=== PATIENT | male | born 1985 | race Caucasian/White ===

== ENCOUNTER 2019-07-11 13:18 | Emergency (ER) | payer OTHER ==
[2019-07-11 13:24] VITALS: BMI 20.7
[2019-07-11] MEDS ORDERED: CLINDAMYCIN 600MG PREMIX IVPB 600 MG/50 ML BAG IVPB ONE ×2 (15:06→15:55)
--- NOTE | 2019-07-11 15:19 | PDOC ---
History of Present Illness - General Chief Complaint: Wound Stated Complaint: LAC RT 4TH DIGIT Time Seen by Provider: 07/11/19 13:57 History Source: Patient - History of Present Illness Occurred: reports: other Upper Extremity Pain Location: left: 4th finger Past History - Past Medical History Allergies/Adverse Reactions: Allergies Allergy/AdvReac Type Severity Reaction Status Date / Time No Known Allergies Allergy Verified 07/11/19 13:24 Home Medications: Ambulatory Orders NK [No Known Home Medication] 07/11/19 COPD: No - Suicide/Smoking/Psychosocial Hx Smoking History: Never smoked Information on smoking cessation initiated: No Hx Alcohol Use: No Drug/Substance Use Hx: No Review of Systems - Review of Systems Constitutional: No: Chills, Fever, Malaise *Physical Exam - Vital Signs Last Vital Signs Temp Pulse Resp BP Pulse Ox 98.3 F 110 H 18 141/91 98 07/11/19 13:22 07/11/19 13:22 07/11/19 13:22 07/11/19 13:22 07/11/19 13:22 - Physical Exam General Appearance: Yes: Appropriately Dressed. No: Apparent Distress HEENT: positive: Normal Voice Neck: positive: Supple Respiratory/Chest: negative: Respiratory Distress Extremity: positive: Other (diffuse swelling to L 4th digit w/ wound to volar aspect of distal phalanx w/ surrounding erythema that extends to PIP joint w/ LROM to PIP and DIPJ, C/F possible tendon involvement) Integumentary: positive: Dry, Warm Neurologic: positive: Fully Oriented, Alert, Normal Mood/Affect ED Treatment Course - LABORATORY CBC & Chemistry Diagram: 07/11/19 15:40 07/11/19 15:40 - RADIOLOGY Radiology Studies Ordered: Category Date Time Status FINGER(S) LEFT [RAD] Stat Radiology 07/11/19 15:06 Ordered Medical Decision Making - Medical Decision Making 07/11/19 15:09 34 yo M, developmental delay, HTN, here for finger cellulitis. Sustained injury to L 4th digit at work 07/05/19. Had sutures placed at [facility]. Did not go back for wound check until yesterday w/ complaint that finger was painful, red and swollen. No f/c. Was placed on bactrim, keflex and bactroban which he started yesterday. Of note, injury is filed under worker's comp see exam Finger cellulitis Has been on abx x 1 day Afebrile but tachy w/ concern for possible tenosynovitis -XR -labs -IV abx -hand c/s -dispo pending 07/11/19 15:38 Dr Michael pulmonary physician for hand. Contacted MD, was told not available. Will c/s Dr Rivera who's on 2nd call 07/11/19 17:[address] Nicole MD not available for consult. Contacted ortho but told they do no cover this condition. Also c/w Dr Greco of plastics who does not accept worker's comp cases per secretary receptionist. Will transfer to [facility] at this time 07/11/19 17:[address] Palomo, plastic MD, Dr Palomo accepted pt for ER to ER transfer. I also spoke to Dr Pierson, ED attg who accepted pt. Per transfer center, ETA 45min- 1hr. Face sheet faxed and XR image sent via PACs. Transfer form filled out w/ CD of XR obtained 07/11/19 18:58 Per transfer center, new ETA is 7:20pm. Of note labs unremarkable w/ soft tissue swelling on XR 07/11/19 19:19 EMS currently in facility. *DC/Admit/Observation/Transfer Diagnosis at time of Disposition: Cellulitis of finger of left hand - Discharge Dispostion Disposition: TRANSFER ACUTE CARE/OTHER HOSP - Referrals Referrals: Flo Cabrera MD [Primary Care Provider] - - Patient Instructions - Post Discharge Activity
[2019-07-11 16:04] LABS: BASO % 0.3 % (0-2.0); EOS % 0.9 % (0-4.5); HEMATOCRIT 46.2 % (35.4-49); HEMOGLOBIN 15.4 GM/dL (11.7-16.9); LYMPH % 19.8 % (8-40); MCH 25.8 pg (25.7-33.7); MCHC 33.3 g/dl (32.0-35.9); MEAN CELL VOLUME 77.7 fl (80-96); MEAN PLT VOLUME 8.9 fl (7.5-11.1); MONO % 9.6 % (3.8-10.2); NEUT % 69.4 % (42.8-82.8); PLATELET COUNT 211 K/MM3 (134-434); RBC 5.95 M/mm3 (4.00-5.60); RDW 13.4 % (11.9-15.9); WHITE BLOOD COUNT 4.8 K/mm3 (4.0-10.0)
[2019-07-11 16:13] LABS: INR 1.03 (0.83-1.09); PROTHROMBIN TIME (PATIENT) 12.1 SEC (9.7-13.0)
[2019-07-11 16:26] VITALS: TEMP 98.5
[2019-07-11 16:34] LABS: ALBUMIN 4.2 g/dl (3.4-5.0); BILIRUBIN,TOTAL 0.5 mg/dL (0.2-1); BLOOD UREA NITROGEN 21.6 mg/dL (7-18); CALCIUM 9.2 mg/dL (8.5-10.1); CREATININE 1.1 mg/dL (0.55-1.3); POTASSIUM 4.5 mmol/L (3.5-5.1); TOT PROT 7.7 g/dl (6.4-8.2)
[2019-07-11 18:02] VITALS: BP 128/73; PULSE 93
== END 2019-07-11 19:20 | disposition short-term general hospital (02) ==
LOC: JER 13:18 → JERFT 13:18 → JER 19:20
DX: L03.012 Cellulitis of left finger (principal); S61.21 Laceration without foreign body of finger without damage to nail; I10 Essential (primary) hypertension; R62.50 Unspecified lack of expected normal physiological development in childhood
CPT/HCPCS: 36415; 73140-TC-RT-FY; 80053; 85025; 85610; 86850; 86900; 86901; 99283-25

== ENCOUNTER 2022-05-26 17:16 | Inpatient (IN) | payer OTHER ==
[2022-05-26 17:32] VITALS: BMI 23.6
[2022-05-26] MEDS ORDERED: chlorproMAZINE HCL 25 MG/1 ML AMP IM ONE (19:52)
[2022-05-26] MEDS ORDERED: PANTOPRAZOLE SODIUM 40 MG VIAL IVPUSH ONE (19:52)
[2022-05-26] MEDS ORDERED: SODIUM CHLORIDE 0.9% 500 ML INFUS.BAG IV ONE (20:16)
[2022-05-26] MEDS ORDERED: chlorproMAZINE HCL 25 MG/1 ML AMP ONE (20:36)
[2022-05-26] MEDS ORDERED: PANTOPRAZOLE SODIUM 40 MG VIAL ONE (20:36)
[2022-05-26 21:30] LABS: BASO % 0.3 % (0-2.0); EOS % 0.8 % (0-4.5); HEMATOCRIT 41.1 % (35.4-49); HEMOGLOBIN 13.7 GM/dL (11.7-16.9); LYMPH % 22.3 % (8-40); MCH 25.2 pg (25.7-33.7); MCHC 33.3 g/dl (32.0-35.9); MEAN CELL VOLUME 75.5 fl (80-96); MEAN PLT VOLUME 8.5 fl (7.5-11.1); MONO % 7.6 % (3.8-10.2); PLATELET COUNT 208 10^3/uL (134-434); RBC 5.44 M/mm3 (4.00-5.60); RDW 13.5 % (11.9-15.9); WHITE BLOOD COUNT 6.5 K/mm3 (4.0-10.0)
[2022-05-26 21:35] LABS: INR 1.08 (0.83-1.09); PROTHROMBIN TIME (PATIENT) 12.4 SEC (9.7-13.0)
[2022-05-26 21:38] LABS: ACTIVATED PTT 29.2 SECONDS (25.2-36.5)
[2022-05-26 21:46] LABS: ALBUMIN 4.3 g/dl (3.4-5.0); CALCIUM 9.1 mg/dL (8.5-10.1)
[2022-05-26 21:47] LABS: BLOOD UREA NITROGEN 15.8 mg/dL (7-18)
[2022-05-26 21:50] LABS: CREATININE 1.1 mg/dL (0.55-1.3)
[2022-05-26 21:51] LABS: BILIRUBIN,TOTAL 1.2 mg/dL (0.2-1); TOT PROT 7.2 g/dl (6.4-8.2)
[2022-05-27] MEDS ORDERED: ONDANSETRON 4 MG/2 ML VIAL IVPUSH PRN (01:18)
[2022-05-27] MEDS: DEXTROSE 5%-0.45% SALINE 1,000 ML IV SCH (02:05)
[2022-05-27 07:54] LABS: BASO % 0.3 % (0-2.0); EOS % 3.2 % (0-4.5); HEMATOCRIT 38.1 % (35.4-49); HEMOGLOBIN 12.6 GM/dL (11.7-16.9); LYMPH % 37.1 % (8-40); MCH 25.1 pg (25.7-33.7); MCHC 33.1 g/dl (32.0-35.9); MEAN CELL VOLUME 75.9 fl (80-96); MEAN PLT VOLUME 8.6 fl (7.5-11.1); NEUT % 49.4 % (42.8-82.8); PLATELET COUNT 177 10^3/uL (134-434); RBC 5.03 M/mm3 (4.00-5.60); RDW 13.5 % (11.9-15.9); WHITE BLOOD COUNT 4.1 K/mm3 (4.0-10.0)
[2022-05-27 08:47] LABS: CALCIUM 8.2 mg/dL (8.5-10.1)
[2022-05-27 08:51] LABS: CREATININE 0.8 mg/dL (0.55-1.3)
[2022-05-27 08:52] LABS: BILIRUBIN,TOTAL 1.2 mg/dL (0.2-1); TOT PROT 5.9 g/dl (6.4-8.2)
[2022-05-27 09:08] LABS: ALBUMIN 3.4 g/dl (3.4-5.0)
[2022-05-27] MEDS ORDERED: PANTOPRAZOLE SODIUM 40 MG VIAL ONE (09:33)
[2022-05-27] MEDS ORDERED: PANTOPRAZOLE SODIUM 40 MG VIAL IVPUSH SCH (10:00)
[2022-05-28] MEDS: DEXTROSE 5%-0.45% SALINE 1,000 ML IV SCH (01:25)
[2022-05-28] MEDS: PANTOPRAZOLE 40 MG TABLET PO SCH (10:10)
[2022-05-28] MEDS: POLYETHYLENE GLYCOL (HEALTHYLAX) 3350 17 GM PACKET PO SCH (21:36)
[2022-05-29 06:04] VITALS: RESP 18
[2022-05-29] MEDS: PANTOPRAZOLE 40 MG TABLET PO SCH (09:25)
[2022-05-29] MEDS: POLYETHYLENE GLYCOL (HEALTHYLAX) 3350 17 GM PACKET PO SCH (09:25)
[2022-05-29 09:28] VITALS: BP 110/57; PULSE 58; TEMP 97.8
[2022-05-29] MEDS ORDERED: chlorproMAZINE HCL 25 MG/1 ML AMP IM ONE (10:30)
== END 2022-05-29 10:55 | disposition home or self-care (01) | DRG 392 ==
LOC: JER 17:16 → JERBED 05-27 00:46 → J4W 05-27 17:40
PROVIDERS: ADMIT Internal Medicine; ATTEND Family Medicine
PROC: 0DB68ZX Excision of Stomach, Via Natural or Artificial Opening Endoscopic, Diagnostic (ICD-10-PCS; principal; 2022-05-27 12:00)
DX: K29.60 Other gastritis without bleeding (principal); J90 Pleural effusion, not elsewhere classified; I10 Essential (primary) hypertension; R06.6 Hiccough; K20.80 Other esophagitis without bleeding
CPT/HCPCS: 0241U-QW; 36415; 71046-TC-FY; 74178-TC; 80053; 82272; 82728; 83540; 83550; 83690; 84484; 85025; 85610; 85730; 86850; 86900; 86901; 88305-TC; 93005; 93010; 93306-TC; 99285-25